=== PATIENT | male | born 1945 | race Caucasian/White ===

== ENCOUNTER → 2016-11-11 | Outpatient (CLI) | payer MEDICARE, OTHER ==
[~2016-11-11] MED LIST: 12 HOUR DECONG120 MG PO; ADVIL200 MG PO; BYSTOLIC5 MG PO; DESYREL150 MG PO; LIPITOR40 MG PO; PRILOSEC20 MG PO; PRINIVIL (ZESTR20 MG PO; RANITIDINE HCL150 M1 PO; ZYRTEC10 MG PO
== END | disposition disaster alternative care site (69) ==
LOC: GRAD 09:00
DX: R13.10 Dysphagia, unspecified (principal); H81.11 Benign paroxysmal vertigo, right ear; F51.04 Psychophysiologic insomnia

== ENCOUNTER → 2017-02-15 | Day surgery (SDC) | payer MEDICARE, OTHER ==
[~2017-02-15] VITALS: Ht 182.9 cm; Wt 101.8 kg
== END | disposition disaster alternative care site (69) ==
LOC: GPOC 02-10 08:00 → GEND 06:54
PROC: 0DB38ZX Excision of Lower Esophagus, Via Natural or Artificial Opening Endoscopic, Diagnostic (ICD-10-PCS; principal; 2017-02-15)
PROC: 0DB68ZX Excision of Stomach, Via Natural or Artificial Opening Endoscopic, Diagnostic (ICD-10-PCS; 2017-02-15)
DX: K29.50 Unspecified chronic gastritis without bleeding (principal); I10 Essential (primary) hypertension; E78.5 Hyperlipidemia, unspecified; I25.10 Atherosclerotic heart disease of native coronary artery without angina pectoris; G47.33 Obstructive sleep apnea (adult) (pediatric); M19.90 Unspecified osteoarthritis, unspecified site; E78.00 Pure hypercholesterolemia, unspecified; Z79.899 Other long term (current) drug therapy; Z98.890 Other specified postprocedural states
CPT/HCPCS: J2001; J7030